=== PATIENT | female | born 1940 | race Caucasian/White ===

== ENCOUNTER 2018-10-28 12:26 | Inpatient (IN) | payer MEDICARE, OTHER ==
[~2018-10-28] VITALS: Ht 162.6 cm; Wt 61.4 kg
--- NOTE | 2018-10-28 13:20 | NUR ---
SPOUSE AT BEDSIDE,DENIES HEAD PAIN,C/O 09/13 GENERALIZED PAIN-CHRONIC.
[2018-10-28 13:26] LABS: BASOPHILS % (AUTO) 0.8 % (0-1); EOSINOPHILS # (AUTO) 0.1 X10'3 (0-0.9); EOSINOPHILS % (AUTO) 1.7 % (0-6); HEMATOCRIT 38.8 % (35.0-45.0); HEMOGLOBIN 13.4 g/dl (12.0-16.0); LYMPHOCYTES % (AUTO) 18.3 % (21-51); MEAN CORPUSCULAR HEMOGLOBIN 32.1 PG (27.0-31.0); MEAN CORPUSCULAR HGB CONC 34.5 g/dL (33.0-36.5); MEAN CORPUSCULAR VOLUME 93.1 FL (78-98); MEAN PLATELET VOLUME 7.8 FL (7.4-10.4); MONOCYTES # (AUTO) 0.6 X10'3 (0-0.9); MONOCYTES % (AUTO) 11.8 % (2-12); NEUTROPHILS # (AUTO) 3.6 X10'3 (1.8-7.7); NEUTROPHILS % (AUTO) 67.4 % (42-75); PLATELET COUNT 171 X10'3 (140-440); RED BLOOD COUNT 4.17 X10'6 (4.20-5.60); RED CELL DISTRIBUTION WIDTH 12.9 % (11.5-14.5); WHITE BLOOD COUNT 5.3 X10'3 (4.5-11.0)
[2018-10-28 13:45] LABS: ALANINE AMINOTRANSFERASE 31 U/L (12-78); ALBUMIN 3.9 G/DL (3.4-5.0); ALBUMIN/GLOBULIN RATIO 1.2 (1.1-1.5); ALKALINE PHOSPHATASE 65 IU/L (46-116); ANION GAP 6 (8-16); ASPARTATE AMINO TRANSFERASE 28 U/L (10-37); BILIRUBIN,TOTAL 0.7 MG/DL (0.1-1.0); BLOOD UREA NITROGEN 16 MG/DL (7-18); BUN/CREATININE RATIO 23.9 (6.6-38.0); CALCIUM 9.1 MG/DL (8.5-10.1); CHLORIDE 106 MMOL/L (99-107); CREATININE 0.67 MG/DL (0.40-0.90); GLUCOSE 121 MG/DL (70-104); SODIUM 141 MMOL/L (135-145); TOTAL CARBON DIOXIDE 29.2 MMOL/L (24-32); TOTAL PROTEIN 7.2 G/DL (6.4-8.2); eGFR 86 ML/MIN
[2018-10-28 13:51] LABS: MAGNESIUM 1.8 MG/DL (1.5-2.4)
--- NOTE | 2018-10-28 14:03 | NUR ---
No transfer at this time per Dr. Holbrook,will repeat ct after 4 hours.
[2018-10-28] MEDS ORDERED: OMEP40CA13 PO (15:37)
[2018-10-28] MEDS ORDERED: SIMV10TA2 PO (15:37)
[2018-10-28] MEDS ORDERED: DULO-31 PO (15:37)
[2018-10-28] MEDS ORDERED: ATEN-169 PO (15:37)
[2018-10-28] MEDS ORDERED: MELO-100 PO (15:37)
[2018-10-28] MEDS ORDERED: hyDRALAzine 10mg tablet PO STA (17:25)
--- NOTE | 2018-10-28 17:26 | NUR ---
SBP ON HIGH SIDE, 180'S-TOOK ATENOLOL 50MG THIS MORNING.DR. CHAPIN MADE AWARE.
[2018-10-28] MEDS ORDERED: acetaminophen 325mg tablet PO STA (17:42)
--- NOTE | 2018-10-28 18:12 | NUR ---
PATIENT C/O LOWER ABCK PAIN,TYLENOL GIVEN,ASSISTED PATIENT TO A HOSPITAL BED.DAUGHTER AT BEDSIDE.
[2018-10-28] MEDS: atenolol 50mg tablet PO SCH (18:39)
[2018-10-28] MEDS: pantoprazole 40mg Tablet.DR PO SCH (18:40)
[2018-10-28] MEDS: duloxetine 30mg CAPSULE.DR PO SCH (18:41)
[2018-10-28] MEDS ORDERED: magnesium 2GM in 50ml NS 50 ML IV PRN (19:05)
[2018-10-28] MEDS ORDERED: potassium Cl 20 mEq SR tablet PO PRN (19:05)
[2018-10-28] MEDS ORDERED: acetaminophen 325mg tablet PO PRN (19:05)
[2018-10-28] MEDS ORDERED: diphenhydrAMINE 25mg capsule PO PRN (19:05)
[2018-10-28] MEDS ORDERED: magnesium 4gm in 100ml NS 100 ML IV PRN (19:05)
[2018-10-28] MEDS ORDERED: magnesium Cl slow-release 64mg tablet PO PRN (19:05)
[2018-10-28] MEDS ORDERED: ondansetron/PF 4mg/2ml inj IV PRN (19:05)
[2018-10-28] MEDS ORDERED: metoclopramide 5 mg/ml inj IV PRN (19:05)
[2018-10-28] MEDS ORDERED: potassium CL 10mEq/100ml bag 100 ML IV PRN ×2 (19:05)
[2018-10-28] MEDS ORDERED: magnesium hydroxide 30ml (MOM) UD suspension PO PRN (19:05)
[2018-10-28] MEDS ORDERED: mag hydrox/Alum hydrox/simeth 30ml oral suspension PO PRN (19:05)
[2018-10-28] MEDS ORDERED: acetaminophen 650mg rectal suppository RC PRN (19:05)
[2018-10-28] MEDS: K and/or MAG REPLACEMENT MC SCH (19:05)
[2018-10-28] MEDS ORDERED: bisacodyl 10mg suppository rectal RC PRN (19:05)
[2018-10-28] MEDS ORDERED: HYDROcodone/acetaminophen 5mg/325mg tablet PO PRN (19:05)
[2018-10-28 19:47] LABS: HEMOGLOBIN A1C 5.4 % (4.5-6.2)
[2018-10-28 20:00] VITALS: BP_SYST 135; BP_SYST 146; BP_SYST 149; BP_DIAS 69; BP_DIAS 75; BP_DIAS 78
--- NOTE | 2018-10-28 20:08 | NUR ---
TELE NEURO STATED HE WOULD FAX RECOMMENDATIONS AND IF FAN HARRISON NEEDED TO CALL NUMBER IS ON FAX PAPERWORK
[2018-10-28] MEDS: normal saline 1000ml 1,000 ML IV SCH (20:17)
[2018-10-28] MEDS: amLODIPine 5mg tablet PO SCH (20:17)
[2018-10-28] MEDS: atorvastatin 10mg tablet PO SCH (21:11)
--- NOTE | 2018-10-28 21:25 | NUR ---
Patient in room . I have received report from ALLYSON Knutson and had the opportunity to ask questions and assume patient care.
[2018-10-28 22:08] VITALS: BP 146/69
[2018-10-28 22:10] VITALS: BP_SYST 135; BP_SYST 149; BP_DIAS 75; BP_DIAS 78
[2018-10-28 22:54] LABS: CLARITY,URINE CLEAR (Clear); COLOR,URINE YELLOW (Yellow); GLUCOSE, URINE NEGATIVE (Neg); KETONES,URINE NEGATIVE (Neg); LEUKOCYTE ESTERASE ,URINE NEGATIVE (Neg); NITRITES, URINE NEGATIVE (Neg); OCCULT BLOOD,URINE NEGATIVE (Neg); PROTEIN,URINE NEGATIVE (Neg)
[2018-10-28 22:57] LABS: UA COLLECTION TYPE NON-SPECIFIED
[2018-10-28] MEDS ORDERED: haloperidol lactate 5mg/ml inj IM PRN (23:10)
[2018-10-28] MEDS ORDERED: LORazepam 2 mg/ml vial IV PRN (23:10)
[2018-10-28] MEDS ORDERED: thiamine inj. 100 MG in normal saline 100ml IV soln 100 ML IV ONE (23:10)
[2018-10-28] MEDS ORDERED: haloperidol 5mg tablet PO PRN (23:10)
[2018-10-29 01:36] LABS: BASOPHILS % (AUTO) 0.5 % (0-1); EOSINOPHILS # (AUTO) 0.1 X10'3 (0-0.9); EOSINOPHILS % (AUTO) 1.4 % (0-6); HEMATOCRIT 37.1 % (35.0-45.0); HEMOGLOBIN 12.7 g/dl (12.0-16.0); LYMPHOCYTES # (AUTO) 1.1 X10'3 (1.1-4.8); LYMPHOCYTES % (AUTO) 19.8 % (21-51); MEAN CORPUSCULAR HEMOGLOBIN 31.3 PG (27.0-31.0); MEAN CORPUSCULAR HGB CONC 34.2 g/dL (33.0-36.5); MEAN CORPUSCULAR VOLUME 91.6 FL (78-98); MEAN PLATELET VOLUME 7.4 FL (7.4-10.4); MONOCYTES # (AUTO) 0.6 X10'3 (0-0.9); MONOCYTES % (AUTO) 10.4 % (2-12); NEUTROPHILS # (AUTO) 3.8 X10'3 (1.8-7.7); NEUTROPHILS % (AUTO) 67.9 % (42-75); PLATELET COUNT 158 X10'3 (140-440); RED BLOOD COUNT 4.05 X10'6 (4.20-5.60); RED CELL DISTRIBUTION WIDTH 12.7 % (11.5-14.5); WHITE BLOOD COUNT 5.6 X10'3 (4.5-11.0)
[2018-10-29 01:49] LABS: ALANINE AMINOTRANSFERASE 27 U/L (12-78); ALBUMIN 3.6 G/DL (3.4-5.0); ALBUMIN/GLOBULIN RATIO 1.2 (1.1-1.5); ALKALINE PHOSPHATASE 58 IU/L (46-116); ANION GAP 8 (8-16); ASPARTATE AMINO TRANSFERASE 24 U/L (10-37); BILIRUBIN,TOTAL 0.7 MG/DL (0.1-1.0); BLOOD UREA NITROGEN 11 MG/DL (7-18); BUN/CREATININE RATIO 20.8 (6.6-38.0); CALCIUM 8.6 MG/DL (8.5-10.1); CHLORIDE 106 MMOL/L (99-107); CHOL/HDL RATIO 2.9 (0.00-4.99); CHOLESTEROL 165 MG/DL (0-200); CREATININE 0.53 MG/DL (0.40-0.90); GLUCOSE 116 MG/DL (70-104); HDL CHOLESTEROL 56 MG/DL (35-60); LDL CHOLESTEROL 96 MG/DL (50-100); LIPASE 122 U/L (73-393); MAGNESIUM 1.6 MG/DL (1.5-2.4); PHOSPHORUS 3.2 MG/DL (2.3-4.5); POTASSIUM 3.1 MMOL/L (3.5-5.1); SODIUM 141 MMOL/L (135-145); TOTAL CARBON DIOXIDE 26.7 MMOL/L (24-32); TOTAL PROTEIN 6.7 G/DL (6.4-8.2); TRIGLYCERIDES 80 MG/DL (20-135); eGFR > 90 ML/MIN
[2018-10-29] MEDS: potassium Cl 20 mEq SR tablet PO PRN ×3 (03:49→11:47)
[2018-10-29] MEDS: normal saline 1000ml 1,000 ML IV SCH ×2 (05:02→07:12)
[2018-10-29 06:00] VITALS: BP 145/76
--- NOTE | 2018-10-29 06:09 | NUR ---
Problems reprioritized. Patient report given, questions answered & plan of care reviewed with ALLYSON Milner.
--- NOTE | 2018-10-29 06:11 | NUR ---
received report from leticia farrell
[2018-10-29] MEDS: folic acid 1mg tablet PO SCH (07:06)
[2018-10-29] MEDS: duloxetine 30mg CAPSULE.DR PO SCH (07:06)
[2018-10-29] MEDS: amLODIPine 5mg tablet PO SCH (07:07)
[2018-10-29] MEDS: atenolol 50mg tablet PO SCH (07:07)
[2018-10-29] MEDS: thiamine 100mg tablet PO SCH (07:08)
[2018-10-29] MEDS: pantoprazole 40mg Tablet.DR PO SCH (07:08)
[2018-10-29] MEDS: multivitamins, therapeutics tablet PO SCH (07:08)
[2018-10-29] MEDS: LORazepam 1 MG tablet PO PRN ×5 (07:09→23:18)
[2018-10-29] MEDS: K and/or MAG REPLACEMENT MC SCH (08:00)
--- NOTE | 2018-10-29 08:00 | NUR ---
pt is being uncooperative at this time, therefore unable to obtain pt vs at this time, continue to monitor
[2018-10-29 10:00] VITALS: BP 131/66
--- NOTE | 2018-10-29 10:43 | NUR ---
PT PULLING AT IV, PT NOT WILLING TO KEEP TABS ALARM ON, PT THREW HAT IN TOILET AWAY, EDUCATED PT ABOUT HER IV, TABS AND HAT, CONTINUE TO EDUCATE PT
--- NOTE | 2018-10-29 10:47 | NUR ---
PT WHEELED DOWN TO MRI/CT
--- NOTE | 2018-10-29 11:29 | NUR ---
PT ARRIVED BACK ON FLOOR, TECH SAID THAT PT DID NOT TOLERATE MRI, CONTINUE TO EDUCATE AND TO MONITOR
--- NOTE | 2018-10-29 11:55 | NUR ---
scanner on computer not working checking meds prior to admin
[2018-10-29] MEDS: acetaminophen 325mg tablet PO PRN (14:52)
[2018-10-29] MEDS: dextrose 5%-normal saline 1,000 ML IV SCH (14:55)
--- NOTE | 2018-10-29 14:59 | NUR ---
scanner on computer not working, checked all meds prior to admin
--- NOTE | 2018-10-29 15:55 | NUR ---
pt received shower
--- NOTE | 2018-10-29 18:05 | NUR ---
GAVE REPORT TO ALLYSON ECHOLS
[2018-10-29 18:40] VITALS: BP 154/87
[2018-10-29] MEDS: atorvastatin 10mg tablet PO SCH (20:07)
[2018-10-29 23:00] VITALS: BP 153/89
[2018-10-30 05:00] VITALS: BP 152/92
[2018-10-30] MEDS: dextrose 5%-normal saline 1,000 ML IV SCH (05:28)
[2018-10-30 06:06] LABS: BASOPHILS % (AUTO) 0.7 % (0-1); EOSINOPHILS # (AUTO) 0.1 X10'3 (0-0.9); EOSINOPHILS % (AUTO) 1.5 % (0-6); LYMPHOCYTES # (AUTO) 1.3 X10'3 (1.1-4.8); LYMPHOCYTES % (AUTO) 27.1 % (21-51); MEAN CORPUSCULAR HGB CONC 34.5 g/dL (33.0-36.5); MEAN CORPUSCULAR VOLUME 92.9 FL (78-98); MEAN PLATELET VOLUME 7.9 FL (7.4-10.4); MONOCYTES # (AUTO) 0.6 X10'3 (0-0.9); MONOCYTES % (AUTO) 13.8 % (2-12); NEUTROPHILS # (AUTO) 2.6 X10'3 (1.8-7.7); NEUTROPHILS % (AUTO) 56.9 % (42-75); PLATELET COUNT 140 X10'3 (140-440); RED BLOOD COUNT 3.76 X10'6 (4.20-5.60); RED CELL DISTRIBUTION WIDTH 12.8 % (11.5-14.5); WHITE BLOOD COUNT 4.6 X10'3 (4.5-11.0)
[2018-10-30 06:12] LABS: ALANINE AMINOTRANSFERASE 26 U/L (12-78); ALBUMIN 3.4 G/DL (3.4-5.0); ALBUMIN/GLOBULIN RATIO 1.1 (1.1-1.5); ALKALINE PHOSPHATASE 53 IU/L (46-116); ANION GAP 7 (8-16); ASPARTATE AMINO TRANSFERASE 25 U/L (10-37); BILIRUBIN,TOTAL 0.8 MG/DL (0.1-1.0); BLOOD UREA NITROGEN 4 MG/DL (7-18); BUN/CREATININE RATIO 7.8 (6.6-38.0); CALCIUM 8.8 MG/DL (8.5-10.1); CHLORIDE 106 MMOL/L (99-107); CREATININE 0.51 MG/DL (0.40-0.90); GLUCOSE 118 MG/DL (70-104); LIPASE 107 U/L (73-393); MAGNESIUM 1.7 MG/DL (1.5-2.4); PHOSPHORUS 2.8 MG/DL (2.3-4.5); POTASSIUM 3.4 MMOL/L (3.5-5.1); SODIUM 141 MMOL/L (135-145); TOTAL CARBON DIOXIDE 28.4 MMOL/L (24-32); TOTAL PROTEIN 6.6 G/DL (6.4-8.2); eGFR > 90 ML/MIN
--- NOTE | 2018-10-30 07:06 | NUR ---
Problems reprioritized. Patient report given, questions answered & plan of care reviewed with LIBERTAD. Addendum: 10/30/18 at 0707 by Romario Raygoza RN Amended: Links added.
[2018-10-30] MEDS: K and/or MAG REPLACEMENT MC SCH (08:00)
[2018-10-30] MEDS: duloxetine 30mg CAPSULE.DR PO SCH (09:53)
[2018-10-30] MEDS: pantoprazole 40mg Tablet.DR PO SCH (09:54)
[2018-10-30] MEDS: folic acid 1mg tablet PO SCH (09:54)
[2018-10-30] MEDS: amLODIPine 5mg tablet PO SCH (09:54)
[2018-10-30] MEDS: atenolol 50mg tablet PO SCH (09:55)
[2018-10-30] MEDS: thiamine 100mg tablet PO SCH (09:55)
[2018-10-30] MEDS: multivitamins, therapeutics tablet PO SCH (09:55)
[2018-10-30] MEDS: potassium Cl 20 mEq SR tablet PO PRN ×3 (09:56→21:30)
[2018-10-30 10:00] VITALS: BP_SYST 131; BP_SYST 142; BP_SYST 159; BP_DIAS 79; BP_DIAS 80; BP_DIAS 87
[2018-10-30 17:47] VITALS: BP 179/98
--- NOTE | 2018-10-30 18:30 | NUR ---
Patient in room ORTHO 4009. I have received report from LIBERTAD VALADEZ and had the opportunity to ask questions and assume patient care. Addendum: 10/30/18 at 1956 by Susanna Wasserman RN Amended: Links added.
--- NOTE | 2018-10-30 19:30 | NUR ---
pt inc of urine in bed and floor and ambulated with gait belt to BRP tolerated well. to and from. then back to bed with new liens after skin care done.
--- NOTE | 2018-10-30 20:15 | NUR ---
houekeeping in to clean the floor then pt meds done. pt took po's well.
[2018-10-30] MEDS: atorvastatin 10mg tablet PO SCH (21:31)
[2018-10-30] MEDS: acetaminophen 325mg tablet PO PRN (21:33)
--- NOTE | 2018-10-30 22:00 | NUR ---
pt set off bed alarms awoke and amb bpr with gait belt and had a bm and void. skin care done and gown changed along with bed pads.
[2018-10-30 22:30] VITALS: BP 151/82
--- NOTE | 2018-10-31 | NUR ---
neuro's without change from 1999. no s&s of distress. tabs and bed alarm on high fall risk.
--- NOTE | 2018-10-31 02:00 | NUR ---
pt resting without change and alarms on.
--- NOTE | 2018-10-31 03:29 | NUR ---
pt cont to rest no s&s of distress.
[2018-10-31] MEDS: dextrose 5%-normal saline 1,000 ML IV SCH (04:24)
[2018-10-31 05:00] VITALS: BP 155/83
[2018-10-31 06:07] LABS: ALANINE AMINOTRANSFERASE 31 U/L (12-78); ALBUMIN 3.4 G/DL (3.4-5.0); ALKALINE PHOSPHATASE 55 IU/L (46-116); ANION GAP 8 (8-16); ASPARTATE AMINO TRANSFERASE 30 U/L (10-37); BILIRUBIN,TOTAL 0.7 MG/DL (0.1-1.0); BLOOD UREA NITROGEN 11 MG/DL (7-18); BUN/CREATININE RATIO 18.3 (6.6-38.0); CALCIUM 9.1 MG/DL (8.5-10.1); CHLORIDE 106 MMOL/L (99-107); GLUCOSE 108 MG/DL (70-104); LIPASE 116 U/L (73-393); MAGNESIUM 1.8 MG/DL (1.5-2.4); PHOSPHORUS 3.7 MG/DL (2.3-4.5); POTASSIUM 4.2 MMOL/L (3.5-5.1); SODIUM 141 MMOL/L (135-145); TOTAL CARBON DIOXIDE 27.5 MMOL/L (24-32); TOTAL PROTEIN 6.9 G/DL (6.4-8.2); eGFR > 90 ML/MIN
[2018-10-31 06:08] LABS: BASOPHILS % (AUTO) 0.9 % (0-1); EOSINOPHILS # (AUTO) 0.1 X10'3 (0-0.9); EOSINOPHILS % (AUTO) 2.5 % (0-6); HEMATOCRIT 37.6 % (35.0-45.0); HEMOGLOBIN 12.9 g/dl (12.0-16.0); LYMPHOCYTES # (AUTO) 1.2 X10'3 (1.1-4.8); LYMPHOCYTES % (AUTO) 25.2 % (21-51); MEAN CORPUSCULAR HEMOGLOBIN 31.8 PG (27.0-31.0); MEAN CORPUSCULAR HGB CONC 34.3 g/dL (33.0-36.5); MEAN CORPUSCULAR VOLUME 92.6 FL (78-98); MEAN PLATELET VOLUME 7.9 FL (7.4-10.4); MONOCYTES # (AUTO) 0.7 X10'3 (0-0.9); MONOCYTES % (AUTO) 13.8 % (2-12); NEUTROPHILS # (AUTO) 2.8 X10'3 (1.8-7.7); NEUTROPHILS % (AUTO) 57.6 % (42-75); PLATELET COUNT 162 X10'3 (140-440); RED BLOOD COUNT 4.06 X10'6 (4.20-5.60); RED CELL DISTRIBUTION WIDTH 12.6 % (11.5-14.5); WHITE BLOOD COUNT 4.8 X10'3 (4.5-11.0)
--- NOTE | 2018-10-31 06:15 | NUR ---
received report from leticia barth
--- NOTE | 2018-10-31 06:42 | NUR ---
Problems reprioritized. Patient report given, questions answered & plan of care reviewed with Annia Coleman. Addendum: 10/31/18 at 0642 by Susanna Wasserman RN Amended: Links added.
[2018-10-31] MEDS: K and/or MAG REPLACEMENT MC SCH (07:33)
[2018-10-31] MEDS: folic acid 1mg tablet PO SCH (07:37)
[2018-10-31] MEDS: duloxetine 30mg CAPSULE.DR PO SCH (07:37)
[2018-10-31] MEDS: pantoprazole 40mg Tablet.DR PO SCH (07:38)
[2018-10-31] MEDS: thiamine 100mg tablet PO SCH (07:39)
[2018-10-31] MEDS: multivitamins, therapeutics tablet PO SCH (07:39)
[2018-10-31] MEDS: atenolol 50mg tablet PO SCH (07:39)
[2018-10-31] MEDS ORDERED: amLODIPine 5mg tablet PO SCH (08:00)
--- NOTE | 2018-10-31 08:00 | NUR ---
UNABLE TO OBTAIN PTS ORTHO STATIC VS AT THIS TIME, CONTINUE TO MONITOR
[2018-10-31 10:00] VITALS: BP 128/70
[2018-10-31] MEDS ORDERED: FOLI1TAB16 PO (10:02)
[2018-10-31] MEDS ORDERED: NOR5T PO (10:02)
[2018-10-31] MEDS ORDERED: MULT-1179 PO (10:02)
[2018-10-31] MEDS ORDERED: thiamine tablet PO (10:02)
--- NOTE | 2018-10-31 11:35 | NUR ---
PT D/C W/INSTRUCTIONS UNDERSTANDING OF INSTRUCTIONS AND W/ALL BELONGINGS IN WHEELCHAIR ACCOMPANIED BY TO PRIVATE VEHICLE TO GO HOME AND F/U WITH PCP AND STREET LIGHT CLE[facility]ER
== END 2018-10-31 11:35 | disposition home health service (06) | DRG 84 ==
LOC: ER 12:26 → EDBEDREQTM 21:13 → EDBEDREQSVC 21:15 → EDBEDREQTM 21:15 → ORTHO 4S 21:36 → CMPBEDREQ 10-30 19:34
PROVIDERS: ADMIT Family Medicine; ATTEND Family Medicine
DX: S06.5X9A Traumatic subdural hemorrhage with loss of consciousness of unspecified duration, initial encounter (principal); R55 Syncope and collapse; I10 Essential (primary) hypertension; K21.9 Gastro-esophageal reflux disease without esophagitis; E78.5 Hyperlipidemia, unspecified; F32.9 Major depressive disorder, single episode, unspecified; I65.23 Occlusion and stenosis of bilateral carotid arteries; M19.90 Unspecified osteoarthritis, unspecified site; S00.03XA Contusion of scalp, initial encounter; E87.6 Hypokalemia; I45.10 Unspecified right bundle-branch block; W18.39XA Other fall on same level, initial encounter; F10.20 Alcohol dependence, uncomplicated; Z88.6 Allergy status to analgesic agent; Z79.899 Other long term (current) drug therapy; Z82.49 Family history of ischemic heart disease and other diseases of the circulatory system; Z87.891 Personal history of nicotine dependence; Z87.11 Personal history of peptic ulcer disease; Z87.19 Personal history of other diseases of the digestive system; Z71.6 Tobacco abuse counseling; Z81.1 Family history of alcohol abuse and dependence; Z83.79 Family history of other diseases of the digestive system; Z90.49 Acquired absence of other specified parts of digestive tract; Y93.89 Activity, other specified; Y92.89 Other specified places as the place of occurrence of the external cause; Y99.8 Other external cause status
CPT/HCPCS: 36415; 70450; 70544; 70551; 71045; 80053; 80061; 81003; 82948; 83036; 83690; 83735; 83880; 84100; 84484; 85025; 85610; 86885; 86900; 86901; 87081; 92508; 92616; 93005; 93306; 95816; 97161; 97530; 99285; G0378; J3411; J7030; J7042

== ENCOUNTER 2018-11-02 09:33 | Outpatient (CLI) | payer MEDICARE, OTHER ==
[2018-11-02] VITALS (25 sets, daily range): BP systolic 99–144; BP diastolic 52–89
[~2018-11-02 09:33] MED LIST: ATEN-169 PO; DULO-31 PO; FOLI1TAB16 PO; MULT-1179 PO; NOR5T PO; OMEP40CA13 PO; SIMV10TA2 PO; thiamine tablet PO
== END 2018-11-02 23:59 | disposition home or self-care (01) ==
LOC: CARD DIAG 09:33
PROVIDERS: ATTEND Internal Medicine Cardiovascular Disease
DX: R55 Syncope and collapse (principal); Z87.891 Personal history of nicotine dependence
CPT/HCPCS: 93660

== ENCOUNTER 2018-12-12 05:00 | Day surgery (SDC) | payer MEDICARE, OTHER ==
[2018-12-11 12:31] LABS: BASOPHILS # (AUTO) 0.1 X10'3 (0-0.2); BASOPHILS % (AUTO) 1.1 % (0-1); EOSINOPHILS # (AUTO) 0.1 X10'3 (0-0.9); HEMATOCRIT 38.6 % (35.0-45.0); HEMOGLOBIN 13.2 g/dl (12.0-16.0); LYMPHOCYTES % (AUTO) 17.2 % (21-51); MEAN CORPUSCULAR HEMOGLOBIN 31.7 PG (27.0-31.0); MEAN CORPUSCULAR HGB CONC 34.2 g/dL (33.0-36.5); MEAN CORPUSCULAR VOLUME 92.7 FL (78-98); MEAN PLATELET VOLUME 7.7 FL (7.4-10.4); MONOCYTES # (AUTO) 0.6 X10'3 (0-0.9); MONOCYTES % (AUTO) 11.1 % (2-12); NEUTROPHILS # (AUTO) 3.9 X10'3 (1.8-7.7); NEUTROPHILS % (AUTO) 68.6 % (42-75); PLATELET COUNT 202 X10'3 (140-440); RED BLOOD COUNT 4.16 X10'6 (4.20-5.60); RED CELL DISTRIBUTION WIDTH 12.8 % (11.5-14.5); WHITE BLOOD COUNT 5.7 X10'3 (4.5-11.0)
[2018-12-11 12:42] LABS: ANION GAP 7 (8-16); BLOOD UREA NITROGEN 14 MG/DL (7-18); BUN/CREATININE RATIO 19.4 (6.6-38.0); CALCIUM 9.6 MG/DL (8.5-10.1); CHLORIDE 105 MMOL/L (99-107); CREATININE 0.72 MG/DL (0.40-0.90); GLUCOSE 94 MG/DL (70-104); POTASSIUM 4.2 MMOL/L (3.5-5.1); SODIUM 144 MMOL/L (135-145); TOTAL CARBON DIOXIDE 31.6 MMOL/L (24-32); eGFR 79 ML/MIN
[2018-12-11 12:45] LABS: PARTIAL THROMBOPLASTIN TIME 23 SECONDS (22-32)
[~2018-12-12] VITALS: Ht 160 cm; Wt 62.6 kg
[2018-12-12] VITALS (17 sets, daily range): BP systolic 115–136; BP diastolic 55–90
[2018-12-12] MEDS ORDERED: AMLO5TAB PO (05:39)
[2018-12-12] MEDS ORDERED: NAPR220T67 PO (05:39)
[2018-12-12] MEDS ORDERED: folic acid PO (05:41)
[2018-12-12] MEDS ORDERED: fentaNYL/PF 50MCG/1 ML 2ML syringe ONE (06:01)
[2018-12-12] MEDS ORDERED: midazolam 2 mg/2 ml injection ONE (06:01)
[2018-12-12] MEDS ORDERED: LIDOcaine 1% W/epiNEPHrine 1:100,000 20ml vial ONE (06:01)
[2018-12-12] MEDS ORDERED: ceFAZolin 1000mg inj ONE ×2 (06:01→06:02)
[2018-12-12] MEDS ORDERED: ceFAZolin 1GM/D5W- ADD-VANTAGE 50 ML IV ONE (06:01)
[2018-12-12] MEDS ORDERED: iohexol 350 MG/ML 50ML vial IV ONE (06:58)
[2018-12-12] MEDS ORDERED: vancomycin/NS 1 GM ADD-VANTAGE 250 ML IV ONE ×2 (10:00→11:00)
[2018-12-12] MEDS ORDERED: naproxen sodium 220mg tablet PO ONE (13:20)
[2018-12-13] MEDS ORDERED: cefazolin/dext.iso 2gm/100 ML IV ONE (05:30)
== END 2018-12-12 14:45 | disposition home or self-care (01) ==
LOC: SSTAY O 05:00
PROVIDERS: ATTEND Internal Medicine Cardiovascular Disease
DX: I45.89 Other specified conduction disorders (principal); I10 Essential (primary) hypertension; E78.5 Hyperlipidemia, unspecified; Z79.899 Other long term (current) drug therapy; Z79.01 Long term (current) use of anticoagulants; R55 Syncope and collapse; I49.5 Sick sinus syndrome
CPT/HCPCS: 33208; 33286; 36415; 71046; 80048; 85025; 85610; 85730; 93005; 99152; 99153; C1785; C1894; C1898; J0690; J2250; J3010; J3370; Q9967; A4565; A4620; A6258; A6449